=== PATIENT | female | born 1935 | race Caucasian/White ===

== ENCOUNTER 2019-01-07 11:01 | Inpatient (IN) | payer OTHER ==
[2019-01-07] MEDS ORDERED: NA CHLORIDE 0.9% 1,000 ML ONE (12:07)
[2019-01-07 12:19] LABS: Basophils % 0.7 % (0-1.3); Hematocrit 38.6 % (36.0-45.0); Lymphocytes % 14.6 % (15.3-44.8); MPV 10.1 fL (7.6-11.3); RBC Red Blood Cell Count 4.54 M/uL (3.86-4.86)
[2019-01-07 12:21] LABS: Protime INR 1.04
--- NOTE | 2019-01-07 12:34 | EKG ---
Test Date: 2019-01-07 Test Time: 11:16:30 Group Cio: DEBBI MEASUREMENT RESULTS: Intervals: Rate: 84 WY: 156 QRSD: 86 QT: 370 QTc: 437 Curlew: P: 70 WY: 156 QRS: 40 T: 35 INTERPRETIVE STATEMENTS: Normal sinus rhythm Low voltage QRS Possible Inferior infarct, age undetermined Cannot rule out Anterior infarct, age undetermined Abnormal ECG No previous ECG available for comparison Electronically Signed On 01-07-19 12:33:37 CDT by Sony Crump
[2019-01-07 12:36] LABS: ALT/SGPT 14 U/L (12-78); AST/SGOT 21 U/L (15-37); Albumin 3.3 g/dL (3.4-5.0); Alkaline Phosphatase 80 U/L (45-117); BUN Blood Urea Nitrogen 22 mg/dL (7-18); Bicarbonate 29 mmol/L (21-32); Bilirubin Direct 0.2 mg/dL (0-0.2); Bilirubin Total 0.4 mg/dL (0.2-1.0); Glucose Level 90 mg/dL (74-106); Lipase 63 U/L (73-393); NT PRO-BNP 165 pg/mL (<450); Potassium 3.7 mmol/L (3.5-5.1); Protein, Total 7.9 g/dL (6.4-8.2); Sodium Level 141 mmol/L (136-145); Troponin (Emerg Dept Use Only) < 0.02 ng/mL (0.0-0.045)
--- NOTE | 2019-01-07 12:39 | RAD REPORT ---
EXAM DESCRIPTION: RAD - Chest Single View - 01/07/2019 12:07 pm CLINICAL HISTORY: Cough, dyspnea COMPARISON: None. TECHNIQUE: AP portable chest image was obtained 1152 hour . FINDINGS: Lung volumes are low accentuating interstitial pattern. Interstitial pattern further accen tuated by shallow inspiration, portable technique and large body habitus. No focal mass or consolidat ion. Mild interstitial edema or infiltrate could be present and indistinguishable from chronic underl lenin interstitial lung disease. Heart and vasculature are normal. No measurable pleural effusion and no pneumothorax. No acute bony abnormality seen. No acute aortic findings suspected. IMPRESSION: Baseline chest film shows prominent interstitial pattern in the setting of large body martinez bitus, portable technique and shallow inspiration. Early interstitial edema or infiltrate cannot be distinguished from fibrosis. No focal mass or consolidation.
[2019-01-07 14:20] LABS: Arterial Blood Carboxyhemoglob 0.7 % (0-1.5); Blood Gas Oxyhemoglobin 96.3 % (94-97); Blood O2 Saturation 97.8 % (92-98.5)
--- NOTE | 2019-01-07 14:46 | EDPHYS ---
Physician Documentation [facility] Name: Lucero Valerio Age: 83 yrs Sex: Female : 1935 Arrival Date: 01/07/2019 Time: 11:05 Bed 15 Private MD: Daron Seals R ED Physician John Galeano HPI: 01/07 14:01 This 83 yrs old Female presents to ER via Wheelchair with complaints of helen Shortness Of Breath. 14:01 The patient has shortness of breath at rest, with light activity. Onset: The helen symptoms/episode began/occurred 5 day(s) ago. Duration: The symptoms are continuous, and are steadily getting worse. The patient's shortness of breath has no apparent modifying factors. Associated signs and symptoms: The patient has no apparent associated signs or symptoms. Severity of symptoms: At their worst the symptoms were mild in the emergency department the symptoms are unchanged. The patient has not experienced similar symptoms in the past. Historical: - Allergies: 11:17 Sulfa (Sulfonamide Antibiotics); ss - Immunization history:: Pneumococcal vaccine is not up to date, Flu vaccine is not up to date. - Social history:: Smoking status: Patient/guardian denies using tobacco, the patient reports quitting approximately 17 years ago. - Ebola Screening: : Patient denies exposure to infectious person Patient denies travel to an Ebola-affected area in the 21 days before illness onset. - Family history:: not pertinent. ROS: 14:01 Constitutional: Negative for fever, chills, and weight loss, Eyes: Negative for injury, helen pain, redness, and discharge, ENT: Negative for injury, pain, and discharge, Neck: Negative for injury, pain, and swelling, Cardiovascular: Negative for chest pain, palpitations, and edema, Abdomen/GI: Negative for abdominal pain, nausea, vomiting, diarrhea, and constipation, Back: Negative for injury and pain, : Negative for injury, bleeding, discharge, and swelling, Skin: Negative for injury, rash, and discoloration, Neuro: Negative for headache, weakness, numbness, tingling, and seizure. 14:01 Respiratory: Positive for cough, shortness of breath. 14:01 MS/extremity: Positive for decreased range of motion, pain, swelling. Exam: 14:03 Constitutional: This is a well developed, well nourished patient who is awake, alert, ehlen and in no acute distress. Head/Face: Normocephalic, atraumatic. Eyes: Pupils equal round and reactive to light, extra-ocular motions intact. Lids and lashes normal. Conjunctiva and sclera are non-icteric and not injected. Cornea within normal limits. Periorbital areas with no swelling, redness, or edema. ENT: Nares patent. No nasal discharge, no septal abnormalities noted. Tympanic membranes are normal and external auditory canals are clear. Oropharynx with no redness, swelling, or masses, exudates, or evidence of obstruction, uvula midline. Mucous membranes moist. Neck: Trachea midline, no thyromegaly or masses palpated, and no cervical lymphadenopathy. Supple, full range of motion without nuchal rigidity, or vertebral point tenderness. No Meningismus. Chest/axilla: Normal chest wall appearance and motion. Nontender with no deformity. No lesions are appreciated. Cardiovascular: Regular rate and rhythm with a normal S1 and S2. No gallops, murmurs, or rubs. Normal PMI, no JVD. No pulse deficits. Abdomen/GI: Soft, non-tender, with normal bowel sounds. No distension or tympany. No guarding or rebound. No evidence of tenderness throughout. Back: No spinal tenderness. No costovertebral tenderness. Full range of motion. Female : Normal external genitalia. Skin: Warm, dry with normal turgor. Normal color with no rashes, no lesions, and no evidence of cellulitis. Neuro: Awake and alert, GCS 15, oriented to person, place, time, and situation. Cranial nerves II-XII grossly intact. Motor strength 5/5 in all extremities. Sensory grossly intact. Cerebellar exam normal. Normal gait. Psych: Awake, alert, with orientation to person, place and time. Behavior, mood, and affect are within normal limits. 14:03 Respiratory: mild respiratory distress is noted, Respirations: labored breathing, that is mild, Breath sounds: decreased breath sounds, Respiratory rate: 20 Vital Signs: 11:13 BP 183 / 85; Pulse 94; Resp 18; Temp 98.4(TE); Pulse Ox 99% on 2 lpm NC; Weight 99.79 ss kg; Height 4 ft. 11 in. (149.86 cm); Pain 0/10; 13:02 BP 146 / 99; Pulse 80; Resp 20; Pulse Ox 99% on 2 lpm NC; ph 14:30 BP 151 / 88; Pulse 76; Resp 18; Pulse Ox 99% on 2 lpm NC; ph 16:10 BP 155 / 77; Pulse 75; Resp 22; Pulse Ox 98% on 2 lpm NC; ph 17:00 BP 148 / 78; Pulse 77; Resp 18; Temp 97.8; Pulse Ox 98% on 2 lpm NC; ph 11:13 Body Mass Index 44.43 (99.79 kg, 149.86 cm) ss MDM: 11:26 Patient medically screened. [facility] 14:04 Data reviewed: vital signs, nurses notes, lab test result(s), EKG, radiologic studies, [facility] CT scan, plain films. 01/07 11:27 Order name: Basic Metabolic Panel; Complete Time: 13:22 [facility] 01/07 11:27 Order name: CBC with Diff; Complete Time: 13:22 [facility] 01/07 11:27 Order name: LFT's; Complete Time: 13:22 [facility] 01/07 11:27 Order name: Magnesium; Complete Time: 13:22 [facility] 01/07 11:27 Order name: NT PRO-BNP; Complete Time: 13:22 [facility] 01/07 11:27 Order name: PT-INR; Complete Time: 13:22 [facility] 01/07 11:27 Order name: Troponin (emerg Dept Use Only); Complete Time: 13:22 [facility] 01/07 11:27 Order name: Lipase; Complete Time: 13:22 [facility] 01/07 11:27 Order name: Urine Culture [facility] 01/07 11:27 Order name: Blood Culture Adult (2) [facility] 01/07 14:02 Order name: ABG; Complete Time: 14:44 [facility] 01/07 14:28 Order name: D-Dimer; Complete Time: 16:28 [facility] 01/07 14:55 Order name: Urine Dipstick--Ancillary (enter results) 01/07 15:49 Order name: Urine Dipstick-Ancillary; Complete Time: 16:28 [facility] 01/07 11:27 Order name: XRAY Chest (1 view); Complete Time: 13:22 [facility] 01/07 11:27 Order name: EKG; Complete Time: 11:29 [facility] 01/07 11:27 Order name: Cardiac monitoring; Complete Time: 16:10 [facility] 01/07 11:27 Order name: EKG - Nurse/Tech; Complete Time: 11:37 [facility] 01/07 11:27 Order name: IV Saline Lock; Complete Time: 11:37 [facility] 01/07 11:27 Order name: Labs collected and sent; Complete Time: 11:37 [facility] 01/07 11:27 Order name: O2 Per Protocol; Complete Time: 11:37 [facility] 01/07 11:27 Order name: O2 Sat Monitoring; Complete Time: 11:37 [facility] 01/07 14:02 Order name: CT Head Brain wo Cont [facility] 01/07 14:40 Order name: US Extremity Venous W Compression Ronald [facility] 01/07 15:32 Order name: CT; Complete Time: 16:28 [facility] 01/07 15:41 Order name: US; Complete Time: 16:28 [facility] 01/07 16:05 Order name: CT Chest For PE Angio 01/07 11:27 Order name: Urine Dipstick-Ancillary (obtain specimen); Complete Time: 17:31 [facility] 01/07 14:02 Order name: Redd; Complete Time: 15:26 [facility] Administered Medications: 12:11 Drug: NS 0.9% 1000 ml Route: IV; Rate: 125 ml/hr; Site: right forearm; la1 16:22 Follow up: Response: No adverse reaction; IV Status: Infusion continued upon admission ph 15:45 Drug: Xopenex 1.25 mg Route: Inhalation; ph 16:21 Follow up: Response: No adverse reaction ph 15:47 Drug: AtroVENT Aerosol 0.5 mg Route: Inhalation; ph 16:21 Follow up: Response: No adverse reaction ph Disposition: 01/07/19 14:45 Hospitalization ordered by Daron Seals for Inpatient Admission. Preliminary diagnosis are Dyspnea, Weakness, Repeated falls, Obesity, unspecified. - Bed requested for Telemetry/MedSurg (Inpatient). - Status is Inpatient Admission. ph - Condition is Fair. - Problem is new. - Symptoms have improved. UTI on Admission? No Signatures: Dispatcher [employer] EDMS Jami Roque Corey, MD MD cha Smirch, Shelby, RN RN ss Nicolas Barragan RN RN la1 Rachna Mehta RN RN ph Corrections: (The following items were deleted from the chart) 15:38 14:45 Hospitalization Ordered by Daron Seals MD for Inpatient Admission. Preliminary bd diagnosis is Dyspnea; Weakness; Repeated falls; Obesity, unspecified. Bed requested for Telemetry/MedSurg (Inpatient). Status is Inpatient Admission. Condition is Fair. Problem is new. Symptoms have improved. UTI on Admission? No. helen 17:34 15:38 01/07/2019 14:45 Hospitalization Ordered by Daron Seals MD for Inpatient ph Admission. Preliminary diagnosis is Dyspnea; Weakness; Repeated falls; Obesity, unspecified. Bed requested for Telemetry/MedSurg (Inpatient). Status is Inpatient Admission. Condition is Fair. Problem is new. Symptoms have improved. UTI on Admission? No. bd
--- NOTE | 2019-01-07 14:46 | ER ---
Nurse's Notes [facility] Name: Lucero Valerio Age: 83 yrs Sex: Female : 1935 Arrival Date: 01/07/2019 Time: 11:05 Bed 15 Private MD: Daron Seals R Diagnosis: Dyspnea;Weakness;Repeated falls;Obesity, unspecified Presentation: 01/07 11:14 Presenting complaint: Daughter reports that patient moved in with her 1.5 months ago ss because she had been falling more at home and unable to live by herself any longer. Over the past 2 months, daughter reports that her strength has declined significantly. Pt states, "Everything is just going down hill.". Transition of care: patient was not received from another setting of care. Onset of symptoms was November 2018. Risk Assessment: Do you want to hurt yourself or someone else? Patient reports no desire to harm self or others. Initial Sepsis Screen: Does the patient meet any 2 criteria? No. Patient's initial sepsis screen is negative. Does the patient have a suspected source of infection? No. Patient's initial sepsis screen is negative. Care prior to arrival: None. 11:14 Method Of Arrival: Wheelchair ss 11:14 Acuity: MAHAD 3 ss Historical: - Allergies: 11:17 Sulfa (Sulfonamide Antibiotics); ss - Immunization history:: Pneumococcal vaccine is not up to date, Flu vaccine is not up to date. - Social history:: Smoking status: Patient/guardian denies using tobacco, the patient reports quitting approximately 17 years ago. - Ebola Screening: : Patient denies exposure to infectious person Patient denies travel to an Ebola-affected area in the 21 days before illness onset. - Family history:: not pertinent. Screenin:04 Abuse screen: Denies threats or abuse. Nutritional screening: No deficits noted. la1 Tuberculosis screening: No symptoms or risk factors identified. Fall Risk None identified. Assessment: 12:03 General: Appears in no apparent distress. Behavior is calm, cooperative. Pain: Denies la1 pain. Neuro: Level of Consciousness is awake, alert, obeys commands, Oriented to person, place, time, situation, Reports weakness in left arm and left leg since a few months. Cardiovascular: Heart tones S1 S2 present Capillary refill < 3 seconds Patient's skin is warm and dry. Chest pain is denied. Respiratory: Airway is patent Trachea midline Respiratory effort is even, labored, Respiratory pattern is regular, tachypnea Breath sounds are diminished bilaterally. Pt on home 02. GI: Abdomen is obese. : No signs and/or symptoms were reported regarding the genitourinary system. 13:02 Reassessment: Patient appears in no apparent distress at this time. Patient and/or ph family updated on plan of care and expected duration. Pain level reassessed. Patient is alert, oriented x 3, equal unlabored respirations, skin warm/dry/pink. Pt resting quietly w/ stable VS, family at bedside, awaiting urine sample. 14:20 Reassessment: Patient appears in no apparent distress at this time. Patient and/or ph family updated on plan of care and expected duration. Pain level reassessed. Patient is alert, oriented x 3, equal unlabored respirations, skin warm/dry/pink. ERP ordered Redd catheter per pt request although pt does not meet Redd criteria. 15:00 Reassessment: Patient appears in no apparent distress at this time. Patient and/or ph family updated on plan of care and expected duration. Pain level reassessed. Patient is alert, oriented x 3, equal unlabored respirations, skin warm/dry/pink. 16:05 Reassessment: Admission to room 212 delayed due to add of of CT chest r/o PE per Dr. brandi Galeano. DDIMER [id number] Dr. Spear notified at 1602. 17:20 Reassessment: Patient appears in no apparent distress at this time. Patient and/or ph family updated on plan of care and expected duration. Pain level reassessed. Patient is alert, oriented x 3, equal unlabored respirations, skin warm/dry/pink. Report called to Lucero FINLEY, pt taken to second floor via stretcher by oxygen equipment technician. Vital Signs: 11:13 BP 183 / 85; Pulse 94; Resp 18; Temp 98.4(TE); Pulse Ox 99% on 2 lpm NC; Weight 99.79 ss kg; Height 4 ft. 11 in. (149.86 cm); Pain 0/10; 13:02 BP 146 / 99; Pulse 80; Resp 20; Pulse Ox 99% on 2 lpm NC; ph 14:30 BP 151 / 88; Pulse 76; Resp 18; Pulse Ox 99% on 2 lpm NC; ph 16:10 BP 155 / 77; Pulse 75; Resp 22; Pulse Ox 98% on 2 lpm NC; ph 17:00 BP 148 / 78; Pulse 77; Resp 18; Temp 97.8; Pulse Ox 98% on 2 lpm NC; ph 11:13 Body Mass Index 44.43 (99.79 kg, 149.86 cm) ED Course: 11:05 Patient arrived in ED. mr 11:05 Daron Seals MD is Private Physician. mr 11:13 Arm band placed on right wrist. ss 11:16 Triage completed. ss 11:24 EKG done, by wildlife biology technician. reviewed by John Galeano MD. sm3 11:26 Nicolas Barragan, RN is Primary Nurse. la1 11:26 John Galeano MD is Attending Physician. helen 11:36 Inserted saline lock: 22 gauge in right forearm, using aseptic technique. Blood la1 collected. 12:04 Patient has correct armband on for positive identification. Side rails up X 1. la1 12:21 XRAY Chest (1 view) In Process Unspecified. EDHI 14:23 No provider procedures requiring assistance completed. Patient admitted, IV remains in ph place. 14:44 Daron Seals MD is Hospitalizing Provider. [facility] 14:48 Redd cath inserted, using sterile technique, 16 Fr., by ED staff, balloon inflated, to ph gravity drainage, urine specimen collected. other 600 mL output. Administered Medications: 12:11 Drug: NS 0.9% 1000 ml Route: IV; Rate: 125 ml/hr; Site: right forearm; la1 16:22 Follow up: Response: No adverse reaction; IV Status: Infusion continued upon admission ph 15:45 Drug: Xopenex 1.25 mg Route: Inhalation; ph 16:21 Follow up: Response: No adverse reaction ph 15:47 Drug: AtroVENT Aerosol 0.5 mg Route: Inhalation; ph 16:21 Follow up: Response: No adverse reaction ph Outcome: 14:45 Decision to Hospitalize by Provider. helen 17:33 Admitted to Tele accompanied by tech, via stretcher, room 212, with oxygen, with chart. ph 17:33 Condition: stable 17:34 Patient left the ED. ph Signatures: Dispatcher [employer] EDMS John Galeano MD MD cha Rivera, Mary mr Smirch, Shelby, RN RN ss Nicolas Barragan, RN RN la1 Rachna Mehta, RN RN Osman, Rosaura march
--- NOTE | 2019-01-07 15:30 | RAD REPORT ---
EXAM DESCRIPTION: CT - Head Brain Wo Cont - 01/07/2019 2:58 pm CLINICAL HISTORY: Dizziness, headache, transient alteration of awareness COMPARISON: None. TECHNIQUE: Axial 5 mm thick images of the head were obtained without IV contrast. All CT scans are performed using dose optimization technique as appropriate and may include automated exposure control or mA/KV adjustment according to patient size. FINDINGS: No intracranial hemorrhage, mass, edema or shift of mid-line structures. No acute infarcti on changes seen. No abnormal extra-axial fluid collections. Atrophy changes are mild. Ventricles are in proportion to the amount of volume loss. Patient has advanced chronic ischemic change throughout t he cerebral white matter extending into the basal ganglia and probably into the brainstem. Mastoid air cells and visualized portions of the paranasal sinuses are clear. No acute bony findings. IMPRESSION: Advanced chronic ischemic change and mild atrophy change present. No acute intracranial finding.
[2019-01-07] MEDS ORDERED: IPRATROPIUM BROM 0.5MG/2.5ML ONE (15:31)
[2019-01-07] MEDS ORDERED: LEVALBUTEROL 1.25 MG/3 ML NEB ONE (15:31)
--- NOTE | 2019-01-07 15:32 | RAD REPORT ---
EXAM DESCRIPTION: US - Extrem Venous W Compress Ronald - 01/07/2019 3:25 pm CLINICAL HISTORY: Leg pain and swelling COMPARISON: None. TECHNIQUE: Real-time sonographic evaluation of the bilateral lower extremity common femoral, superfi cial femoral, popliteal and posterior tibial veins was performed. FINDINGS: Normal compressibility, flow augmentation, phasic flow and spontaneous flow are identified in the left and right lower extremity common femoral, superficial femoral, popliteal and posterior t ibial veins. No intraluminal filling defects seen. IMPRESSION: No DVT in either lower extremity.
[2019-01-07 15:48] LABS: Urine Blood NEGATIVE (NEG); Urine Glucose NEGATIVE (NEG); Urine Protein NEGATIVE (NEG); Urine Specific Gravity 1.015 (1.005-1.030)
[2019-01-07] MEDS ORDERED: ONDANSETRON 4 MG/2 ML VIAL IV PRN (17:45)
[2019-01-07] MEDS: NA CHLORIDE 0.9% 1,000 ML IV SCH (18:39)
[2019-01-07] MEDS: METHYLPREDNISOLONE 40 MG INJ IV SCH (18:40)
[2019-01-07] MEDS: FAMOTIDINE 20 MG/2 ML VIAL IV SCH (20:50)
[2019-01-07] MEDS: ENOXAPARIN 40 MG/0.4 ML SQ SCH (20:51)
[2019-01-07] MEDS ORDERED: PNEUMOCOCCAL VACCINE 0.5 ML IMVAC ONE (21:00)
[2019-01-07] MEDS ORDERED: INFLUENZA VACCINE (for 3y+) 0.5 ML DOSE IMVAC ONE (21:00)
[2019-01-07] MEDS: ACETAMINOPHEN 500 MG TAB PO PRN (23:22)
[2019-01-08] MEDS: METHYLPREDNISOLONE 40 MG INJ IV SCH ×3 (00:22→16:53)
[2019-01-08] MEDS: NA CHLORIDE 0.9% 1,000 ML IV SCH ×3 (04:12→23:28)
[2019-01-08 05:24] LABS: Absolute Lymphocytes (CBC) 0.6 K/uL (0.7-4.9); Basophils % 0.4 % (0-1.3); Lymphocytes % 8.7 % (15.3-44.8); MPV 9.9 fL (7.6-11.3); RBC Red Blood Cell Count 4.29 M/uL (3.86-4.86)
[2019-01-08] MEDS: ACETAMINOPHEN 500 MG TAB PO PRN ×2 (06:00→17:00)
[2019-01-08] MEDS: IPRATROPIUM BROM 0.5MG/2.5ML NEB PRN ×3 (08:15→20:00)
[2019-01-08] MEDS: ALBUTEROL 2.5 MG/3 ML NEB SOL NEB PRN ×2 (08:15→13:48)
[2019-01-08 08:35] LABS: Blood Morphology Comment NOT SEEN (NOT SEEN); Platelet Estimate ADEQ
[2019-01-08] MEDS: ASPIRIN EC 81 MG TAB PO SCH (10:23)
[2019-01-08] MEDS: FAMOTIDINE 20 MG/2 ML VIAL IV SCH ×2 (10:23→20:16)
[2019-01-08] MEDS: LOSARTAN POTASSIUM 50 MG TABLET PO SCH (10:23)
[2019-01-08] MEDS: ENOXAPARIN 40 MG/0.4 ML SQ SCH (16:53)
[2019-01-09] MEDS: IPRATROPIUM BROM 0.5MG/2.5ML NEB PRN ×3 (00:49→13:35)
[2019-01-09] MEDS: ALBUTEROL 2.5 MG/3 ML NEB SOL NEB PRN ×4 (00:49→20:00)
--- NOTE | 2019-01-09 04:42 | EKG ---
Test Date: 2019-01-08 Test Time: 08:42:41 [employer] Pack[employer] Machine Operator: HAO MEASUREMENT RESULTS: Intervals: Rate: 88 MN: 168 QRSD: 86 QT: 362 QTc: 438 Arverne: P: 69 MN: 168 QRS: 41 T: 28 INTERPRETIVE STATEMENTS: Normal sinus rhythm Low voltage QRS Cannot rule out Anterior infarct, age undetermined Abnormal ECG Compared to ECG 01/07/2019 11:16:30 No significant changes Electronically Signed On 01-09-19 04:41:28 CDT by Sony Crump
[2019-01-09] MEDS: LOSARTAN POTASSIUM 50 MG TABLET PO SCH (08:10)
[2019-01-09] MEDS: FAMOTIDINE 20 MG/2 ML VIAL IV SCH ×2 (08:10→21:35)
[2019-01-09] MEDS: ASPIRIN EC 81 MG TAB PO SCH (08:10)
[2019-01-09] MEDS: METHYLPREDNISOLONE 40 MG INJ IV SCH ×3 (08:11→18:01)
[2019-01-09] MEDS: NA CHLORIDE 0.9% 1,000 ML IV SCH ×3 (10:30→20:58)
--- NOTE | 2019-01-09 12:23 | RAD REPORT ---
EXAM DESCRIPTION: CT - Chest For Pe Angio - 01/08/2019 7:01 pm CLINICAL HISTORY: elevated DDIMER, shortness of breath COMPARISON: Chest Single View dated 01/07/2019 TECHNIQUE: Dynamically enhanced 3 mm thick images of the chest were obtained during administration o f approximately 150mL Isovue 370 IV contrast. Coronal and oblique MIP reconstruction images were gene rated and reviewed. Exam utilizes a protocol to evaluate the pulmonary arterial tree. All CT scans are performed using dose optimization technique as appropriate and may include automated exposure control or mA/KV adjustment according to patient size. FINDINGS: No pulmonary emboli are identified. The aorta as imaged shows no acute or suspicious finding. Aorta is tortuous but not dilated. Minimal aortic calcifications noted. No pericardial thickening or effusion. No focal consolidation or suspicious mass lesion. Respiratory motion limits detail. There is minimal atelectasis in each posterior gutter. Posterior lung base prominent interstitial markings could indic ate chronic disease or minimal interstitial edema or infiltrate. No pleural effusion or pleural thick ening. No mediastinal or hilar suspicious masses. No chest wall masses or abnormal axillary lymphadenopathy. IMPRESSION: No pulmonary emboli identified. No focal mass or consolidation. Minimal prominence of the interstitial markings in each lung base cou ld be chronic disease, minimal interstitial edema or minimal interstitial infiltrate. Note: Due to prolonged technical problems with the PACs - dictation systems, a final written report w as delayed. Verbal report telephoned to the ordering clinician at the time of the study.
[2019-01-09] MEDS: HYDRALAZINE HCL 20 MG/ML VIAL IV PRN (14:02)
[2019-01-09] MEDS: ACETAMINOPHEN 500 MG TAB PO PRN (14:06)
--- NOTE | 2019-01-09 14:10 | RAD REPORT ---
EXAM DESCRIPTION: Brittat Single View01/08/2019 7:05 pm CLINICAL HISTORY: Chest pain COMPARISON: 01/07/2019 FINDINGS: The lungs appear clear of acute infiltrate. The heart is mildly enlarged. Eventration right hemidiaphragm
[2019-01-09] MEDS: ENOXAPARIN 40 MG/0.4 ML SQ SCH (18:01)
[2019-01-09 18:38] VITALS: BMI 44.2
[2019-01-09] MEDS: DIPHENHYDRAMINE 25 MG TAB/CAP PO PRN (22:52)
[2019-01-10] MEDS: METHYLPREDNISOLONE 40 MG INJ IV SCH (00:34)
--- NOTE | 2019-01-10 00:47 | HP ---
Date of Admission: 01/07/2019 Chief Complaint: Multiple weakness, falls, dyspnea. History Of Present Illness: An 83-year-old female who is known to have COPD, [facility] with multiple complaints including weakness, repeated falls, and shortness of breath. Pat deanfercho had workup done. There were increased pulmonary markings on the x-ray. She did not have any ev idence of fractures or other acute illness. Patient is admitted. Patient denied any history of ches t pain. No history of fever, chills, rigors. Past Medical History: Positive for COPD, hypertension, osteoarthritis, gastroesophageal reflux disea se. Allergies: SULFONAMIDES. Family History: Noncontributory. Personal History: Currently, nonsmoker. Home Medicines: Tylenol, aspirin, Symbicort, Lasix, Motrin, omeprazole, losartan. Review of Systems: No chest pain. Physical Examination: General: Revealed 83-year-old female, alert for her age. HEENT: Negative. Neck: Supple. JVD negative. Chest: Scattered wheezes bilaterally. Heart: Regular. Abdomen: Pendulous, nontender. Extremities: No edema. Laboratory Data: White count normal. Chem profile; BUN 22, otherwise normal. Troponin negative. B BUYER PLANNER 343. Chest x-ray done in the emergency room at the time of admission showed increased interstitia l markings. Assessment: 1.Chronic obstructive pulmonary disease exacerbation. 2.Chronic obstructive pulmonary disease. 3.Hypertension. 4.Osteoarthritis. 5.History of repeated falls and poor mobility. Plan: Patient is started on IV steroids and breathing treatments. Social Service and rehab consults are done to see what would be good for her in the senior living to prevent falls and have fractures. MARK/ATILIO Voice ID: [id number]
[2019-01-10] MEDS: NA CHLORIDE 0.9% 1,000 ML IV SCH ×2 (04:17→17:08)
[2019-01-10] MEDS: HYDRALAZINE HCL 20 MG/ML VIAL IV PRN (06:03)
[2019-01-10] MEDS: IPRATROPIUM BROM 0.5MG/2.5ML NEB PRN ×3 (08:27→22:05)
[2019-01-10] MEDS: ALBUTEROL 2.5 MG/3 ML NEB SOL NEB PRN ×3 (08:27→22:05)
[2019-01-10] MEDS: LOSARTAN POTASSIUM 50 MG TABLET PO SCH (08:54)
[2019-01-10] MEDS: predniSONE 10 MG TAB PO SCH ×2 (08:54→20:13)
[2019-01-10] MEDS: ASPIRIN EC 81 MG TAB PO SCH (08:54)
[2019-01-10] MEDS: ACETAMINOPHEN 500 MG TAB PO PRN ×2 (08:54→17:06)
[2019-01-10] MEDS: FAMOTIDINE 20 MG/2 ML VIAL IV SCH (08:55)
--- NOTE | 2019-01-10 12:11 | PN ---
Patient is doing better. Her wheezing is better. However, her blood pressure is going up, probably it is from steroids. I will discontinue IV steroids and place her on oral prednisone. She also will receive Lovenox for DVT prevention. MARK/ATILIO Voice ID: [id number] Report ID: [id number]
[2019-01-10] MEDS ORDERED: ENOXAPARIN 30 MG/0.3 ML SQ SCH (17:00)
[2019-01-10] MEDS: FAMOTIDINE 20 MG TAB PO SCH (20:13)
[2019-01-11] MEDS: DIPHENHYDRAMINE 25 MG TAB/CAP PO PRN (00:39)
[2019-01-11] MEDS: HYDRALAZINE HCL 20 MG/ML VIAL IV PRN ×2 (00:42→06:28)
[2019-01-11] MEDS: NA CHLORIDE 0.9% 1,000 ML IV SCH (02:33)
[2019-01-11] MEDS: ALBUTEROL 2.5 MG/3 ML NEB SOL NEB PRN ×2 (07:26→14:10)
[2019-01-11] MEDS: IPRATROPIUM BROM 0.5MG/2.5ML NEB PRN ×2 (07:26→14:10)
[2019-01-11] MEDS: LOSARTAN POTASSIUM 50 MG TABLET PO SCH (08:49)
[2019-01-11] MEDS: FAMOTIDINE 20 MG TAB PO SCH (08:49)
[2019-01-11] MEDS: predniSONE 10 MG TAB PO SCH (08:49)
[2019-01-11] MEDS: ASPIRIN EC 81 MG TAB PO SCH (08:50)
[2019-01-11] MEDS: ACETAMINOPHEN 500 MG TAB PO PRN (08:57)
[2019-01-11] MEDS ORDERED: MELATONIN 5 MG TABLET PO PRN (10:48)
[2019-01-11 12:47] VITALS: TEMP 98.9
[2019-01-11 16:14] VITALS: O2SAT 98
[2019-01-11 16:28] VITALS: BP 144/67
== END 2019-01-11 18:28 | DRG 192 ==
LOC: ER 11:01 → ERHOLD 14:48 → 2ND 17:18
PROVIDERS: ADMIT Internal Medicine; ATTEND Internal Medicine
DX: J44.1 Chronic obstructive pulmonary disease with (acute) exacerbation (principal); I10 Essential (primary) hypertension; M19.90 Unspecified osteoarthritis, unspecified site; K21.9 Gastro-esophageal reflux disease without esophagitis; Z88.2 Allergy status to sulfonamides; Z91.81 History of falling
CPT/HCPCS: 36415; 51702; 70450; 71045; 71275; 80048; 80076; 81003; 82805; 83690; 83735; 83880; 84484; 85025; 85379; 85610; 87040; 87086; 87088; 93005; 93970; 94640; 94760; 96360; 96361; 97110; 97161; 97530; 99285; J0360; J1650; J2920; J7030; J7512; Q9967

== ENCOUNTER 2019-02-09 02:00 | Inpatient (IN) | payer OTHER ==
[2019-02-09 02:35] LABS: Absolute Lymphocytes (CBC) 1.6 K/uL (0.7-4.9); Basophils % 0.7 % (0-1.3); Hematocrit 34.3 % (36.0-45.0); RBC Red Blood Cell Count 4.09 M/uL (3.86-4.86)
[2019-02-09 02:38] LABS: Protime INR 1.05
[2019-02-09] MEDS ORDERED: AZITHROMYCIN 500 MG INJ IVPB ONE (02:45)
[2019-02-09] MEDS ORDERED: NA CHLORIDE 0.9% 250 ML ONE (02:45)
[2019-02-09] MEDS ORDERED: CEFTRIAXONE/SWI 1gm 1 GM/10 ML SYR ONE (02:45)
[2019-02-09] MEDS ORDERED: FUROSEMIDE 20 MG/ 2ML VIAL ONE (02:45)
[2019-02-09 02:50] LABS: ALT/SGPT 20 U/L (12-78); AST/SGOT 21 U/L (15-37); Albumin 2.7 g/dL (3.4-5.0); Alkaline Phosphatase 70 U/L (45-117); BUN Blood Urea Nitrogen 20 mg/dL (7-18); Bicarbonate 30 mmol/L (21-32); Bilirubin Direct 0.1 mg/dL (0-0.2); Bilirubin Total 0.4 mg/dL (0.2-1.0); CKMB Creatine Kinase MB 1.6 ng/mL (0.3-3.6); Creatine Phosphokinase 81 U/L (26-192); Glucose Level 103 mg/dL (74-106); Lipase 54 U/L (73-393); Magnesium 1.9 mg/dL (1.8-2.4); NT PRO-BNP 200 pg/mL (<450); Potassium 3.6 mmol/L (3.5-5.1); Protein, Total 6.8 g/dL (6.4-8.2); Sodium Level 142 mmol/L (136-145); Troponin (Emerg Dept Use Only) < 0.02 ng/mL (0.0-0.045)
[2019-02-09] MEDS ORDERED: ALBUTEROL 2.5 MG/3 ML NEB SOL ONE (02:53)
[2019-02-09 03:05] LABS: Arterial Blood Carboxyhemoglob 0.8 % (0-1.5); Blood Gas Oxyhemoglobin 96.7 % (94-97); Blood O2 Saturation 98.2 % (92-98.5)
[2019-02-09 03:46] LABS: Urine Blood 1+ (NEG); Urine Glucose NEGATIVE (NEG); Urine Protein 1+ (NEG); Urine pH 6.5 (5.0-7.0)
--- NOTE | 2019-02-09 04:16 | EDPHYS ---
Physician Documentation [facility] Name: Lucero Valerio Age: 83 yrs Sex: Female : 1935 Arrival Date: 02/09/2019 Time: 02:05 Bed 6 Private MD: ED Physician Gab Sparks HPI: 02/09 02:45 This 83 yrs old Female presents to ER via EMS with complaints of Breathing tw4 Difficulty. 02:45 The patient has shortness of breath at rest. Onset: The symptoms/episode began/occurred tw4 today. Duration: The symptoms are continuous, and are steadily getting worse. The patient's shortness of breath has no apparent modifying factors. Associated signs and symptoms: The patient has no apparent associated signs or symptoms. Severity of symptoms: At their worst the symptoms were moderate. The patient has not experienced similar symptoms in the past. Historical: - Allergies: 02:15 Sulfa (Sulfonamide Antibiotics); lp1 - Home Meds: 02:15 melatonin 5 mg Oral tab 2 tab nightly [Active]; GlycoLax 17 gram/dose oral powd once lp1 daily [Active]; Enulose 10 gram/15 mL oral soln 30 mL daily [Active]; omeprazole 20 mg Oral TbEC nightly [Active]; 02:18 ipratropium-albuterol 0.5 mg-3 mg(2.5 mg base)/3 mL Inhl nebu 3 mL every 6 hours lp1 [Active]; Symbicort 160-4.5 mcg/actuation inhalation HFAA 2 puffs 2 times per day [Active]; losartan 50 mg oral tab 1 tab once daily [Active]; aspirin 81 mg Oral TbEC 1 tab once daily [Active]; - PMHx: 02:18 COPD; Polyosteoarthritis; Dysphagia; GERD; Sleep Apnea; Hypertension; lp1 - Immunization history:: Adult Immunizations up to date. - Social history:: Smoking status: Patient/guardian denies using tobacco, the patient reports quitting approximately 15 years ago. - Ebola Screening: : No symptoms or risks identified at this time. ROS: 02:45 Constitutional: Negative for fever, chills, and weight loss, Eyes: Negative for injury, tw4 pain, redness, and discharge, Cardiovascular: Negative for chest pain, palpitations, and edema, Abdomen/GI: Negative for abdominal pain, nausea, vomiting, diarrhea, and constipation, Back: Negative for injury and pain, MS/Extremity: Negative for injury and deformity, Skin: Negative for injury, rash, and discoloration, Neuro: Negative for headache, weakness, numbness, tingling, and seizure. 02:45 Respiratory: Positive for cough, shortness of breath, Negative for Exam: 02:45 Constitutional: This is a well developed, well nourished patient who is awake, alert, tw4 and in no acute distress. Head/Face: Normocephalic, atraumatic. Cardiovascular: Regular rate and rhythm with a normal S1 and S2. No gallops, murmurs, or rubs. Normal PMI, no JVD. No pulse deficits. 02:45 Abdomen/GI: Soft, non-tender, with normal bowel sounds. No distension or tympany. No guarding or rebound. No evidence of tenderness throughout. Back: No spinal tenderness. No costovertebral tenderness. Full range of motion. MS/ Extremity: Pulses equal, no cyanosis. Neurovascular intact. Full, normal range of motion. Neuro: Awake and alert, GCS 15, oriented to person, place, time, and situation. Cranial nerves II-XII grossly intact. Motor strength 5/5 in all extremities. Sensory grossly intact. Cerebellar exam normal. Normal gait. 02:45 Respiratory: moderate respiratory distress is noted, Respirations: labored breathing, that is moderate, accessory muscle usage, that is moderate, prolonged exhalation, Breath sounds: wheezing: Vital Signs: 02:12 BP 134 / 80; Pulse 100; Resp 26; Temp 98; Pulse Ox 93% on 2 lpm NC; Weight 98.88 kg; lp1 Height 4 ft. 11 in. (149.86 cm); Pain 0/10; 02:30 BP 126 / 70; Pulse 102; Resp 28; Pulse Ox 95% on 30% BiPAP; lp1 03:00 BP 102 / 50; Pulse 90; Resp 26; Pulse Ox 95% on 30% BiPAP; lp1 03:30 BP 90 / 61; Pulse 98; Resp 29; Pulse Ox 98% on 30% BiPAP; lp1 04:00 BP 106 / 55; Pulse 100; Resp 23; Temp 97.5; Pulse Ox 97% on 30% BiPAP; lp1 04:30 BP 101 / 52; Pulse 95; Resp 23; Pulse Ox 94% on 30% BiPAP; lp1 05:00 BP 113 / 76; Pulse 93; Resp 24; Pulse Ox 94% on 30% BiPAP; lp1 05:57 BP 116 / 79; Pulse 80; Resp 22; Pulse Ox 94% on 30% BiPAP; lp1 02:12 Body Mass Index 44.03 (98.88 kg, 149.86 cm) lp1 MDM: 02:10 Patient medically screened. tw4 05:51 Differential diagnosis: asthma, CHF exacerbation, Chronic Obstructive Pulmonary Disease tw4 Myocardial Infarction pneumonia, Pneumothorax pulmonary edema, Pulmonary Embolism reactive airway disease, Sepsis. Antibiotic administration: Antibiotic administration: Rocephin and Zithromax given. Data reviewed: vital signs, nurses notes. Data interpreted: Pulse oximetry: Interpretation: hypoxia. Plan: O2 by Mask applied. Counseling: I had a detailed discussion with the patient and/or guardian regarding: the historical points, exam findings, and any diagnostic results supporting the discharge/admit diagnosis, lab results, radiology results. Physician consultation: Bull Shepherd MD regarding admission, to the telemetry unit. patient's condition, and will see patient in inpatient room. 05:52 ED course: Pt brought to room 5 placed on bipap for respiratory failure. Pt ABG tw4 revealed good oxygenation on 50% FIO2. Pt received steroid and nebulizers treatments. Will admit to hospital for further management . 02/09 02:12 Order name: Blood Culture Adult (2) tw4 02/09 02:12 Order name: BMP; Complete Time: 04:08 4 02/09 04:08 Interpretation: Normal except: BUN 20; GFR 82. 02/09 02:12 Order name: CBC with Diff; Complete Time: 04:08 02/09 04:08 Interpretation: Normal except: HGB 11.5; HCT 34.3. 02/09 02:12 Order name: Ckmb; Complete Time: 04:08 02/09 04:09 Interpretation: Within normal limits: CKMB 1.6. 02/09 02:12 Order name: CPK; Complete Time: 04:08 02/09 04:09 Interpretation: Within normal limits: CPK 81. 02/09 02:12 Order name: D-Dimer; Complete Time: 04:08 tw4 02/09 04:08 Interpretation: Normal except: D-DIMER 2077. 02/09 02:12 Order name: Hepatic Function; Complete Time: 04:08 [facility] 02/09 04:08 Interpretation: Normal except: ALB 2.7; GLOB 4.1; A/G 0.7. [facility] 02/09 02:12 Order name: Lipase; Complete Time: 04:08 [facility] 02/09 04:09 Interpretation: Normal except: LIP 54. [facility] 02/09 02:12 Order name: Magnesium; Complete Time: 04:08 [facility] 02/09 04:09 Interpretation: Within normal limits: MG 1.9. 02/09 02:12 Order name: NT PRO-BNP; Complete Time: 04:08 [facility] 02/09 04:09 Interpretation: Normal except: NT PRO-BNP 200. 02/09 02:12 Order name: PT-INR; Complete Time: 04:08 [facility] 02/09 04:10 Interpretation: Within normal limits: PT 12.4. 02/09 02:12 Order name: Ptt, Activated; Complete Time: 04:08 [facility] 02/09 04:10 Interpretation: Within normal limits: PTT 26.0. 02/09 02:12 Order name: Troponin (emerg Dept Use Only); Complete Time: 04:08 [facility] 02/09 04:10 Interpretation: Within normal limits: TROPED < 0.02. 02/09 02:22 Order name: Lactate; Complete Time: 04:08 [facility] 02/09 04:11 Interpretation: Within normal limits: LAC 0.8. [facility] 02/09 02:12 Order name: XRAY CXR (1 view) 02/09 02:12 Order name: BIPAP [facility] 02/09 02:22 Order name: Blood Culture Adult (2) [facility] 02/09 02:50 Order name: ABG; Complete Time: 04:08 1 02/09 04:09 Interpretation: Normal except: ABGHCO3 30.8; ABGPO2 118.0; ABGPCO2 49.6; ABGTHB 11.9. 02/09 03:41 Order name: Urine Microscopic Only [facility] 02/09 03:41 Order name: Urine Culture [facility] 02/09 03:44 Order name: Urine Dipstick--Ancillary (enter results); Complete Time: 04:08 mt 02/09 05:39 Order name: CBC with Automated Diff EDMS 02/09 05:39 Order name: Comprehensive Metabolic Panel EDWA 02/09 05:39 Order name: Comprehensive Metabolic Panel EDWA 02/09 05:39 Order name: Troponin I EDWA 02/09 05:39 Order name: Troponin I EDWA 02/09 05:41 Order name: CBC with Automated Diff EDWA 02/09 05:42 Order name: Chest Single View EDWA 02/09 05:42 Order name: Chest Single View EDWA 02/09 02:12 Order name: Call for Old Records; Complete Time: 03:05 tw4 02/09 02:12 Order name: Call RT; Complete Time: 03:05 tw4 02/09 02:12 Order name: Call for Old EKG; Complete Time: 03:05 tw4 02/09 02:12 Order name: EKG; Complete Time: 02:14 tw4 02/09 02:12 Order name: Cardiac monitoring; Complete Time: 02:50 tw4 02/09 02:12 Order name: EKG - Nurse/Tech; Complete Time: 03:06 tw4 02/09 02:12 Order name: IV Saline Lock; Complete Time: 02:50 tw4 02/09 02:12 Order name: Labs collected and sent; Complete Time: 02:50 tw4 02/09 02:12 Order name: O2 Per Protocol; Complete Time: 02:50 tw4 02/09 02:12 Order name: O2 Sat Monitoring; Complete Time: 02:50 tw4 02/09 02:39 Order name: Redd; Complete Time: 03:07 tw4 02/09 03:41 Order name: Urine Dipstick-Ancillary (obtain specimen); Complete Time: 03:43 tw4 02/09 05:39 Order name: CONS Pharmacy Consult EDWA 02/09 05:39 Order name: Heart Healthy EDWA EC:13 Rate is 97 beats/min. Rhythm is regular. QRS [place] is Normal. NH interval is normal. QRS tw4 interval is normal. QT interval is normal. T waves are Normal. T waves are Flattened in leads V3, V4, V5, V6. No ST changes noted. Clinical impression: Abnormal EKG without significant change. Interpreted by me. Reviewed by me. Administered Medications: 02:38 Not Given (Duplicate Order): Rocephin - (cefTRIAXone) 1 grams IVPB once over 30 mins; ak1 (mix in 50 mL NS) 02:50 Drug: Albuterol 2.5 mg Route: Inhalation; lp1 02:51 Drug: Zithromax 500 mg Route: IVPB; Infused Over: 1 hrs; Site: left forearm; lp1 04:00 Follow up: IV Status: Completed infusion; IV Intake: 250ml lp1 02:58 Drug: Lasix 20 mg Route: IVP; Site: left forearm; lp1 04:00 Follow up: Response: No adverse reaction lp1 02:59 Drug: Rocephin 1 grams Route: IV; Rate: calculated rate; Site: left forearm; lp1 03:30 Follow up: IV Status: Completed infusion; IV Intake: 10ml lp1 04:53 Not Given (Given by EMS): SOLU-Medrol 125 mg IVP once lp1 04:59 CANCELLED (Physician Discretion): DuoNeb (3:1) (2.5 mg - 0.5 mg) 3 ml Nebulizer once lp1 Disposition: 05:52 Critical Care:. tw4 Disposition: 02/09/19 04:15 Hospitalization ordered by Bull Shepherd for Inpatient Admission. Preliminary diagnosis are Chronic obstructive pulmonary disease with (acute) exacerbation, Hypoxemia. - Bed requested for Telemetry/MedSurg (Inpatient). - Status is Inpatient Admission. lp1 - Condition is Guarded. - Problem is an ongoing problem. - Symptoms have improved. UTI on Admission? No Critical care time excluding procedures: 05:52 Critical care time: Bedside Care: 25 minutes, Consultation: 5 minutes, Family tw4 Intervention: 5 minutes. Total time: 35 minutes Signatures: Dispatcher [employer] EDMS Erika Travis RN RN lp1 Tracy Simms RN RN ak1 Maddie Wynn RN RN cg Wadley, Terrence, MD MD tw4 Syed De La Rosa mw2 Corrections: (The following items were deleted from the chart) 04:59 04:12 DuoNeb (3:1) (2.5 mg - 0.5 mg) 3 ml Nebulizer once ordered. tw4 lp1 05:13 04:15 Hospitalization Ordered by Bull Shepherd MD for Inpatient Admission. Preliminary tw4 diagnosis is Chronic obstructive pulmonary disease with (acute) exacerbation. Bed requested for Telemetry/MedSurg (Inpatient). Status is Inpatient Admission. Condition is Guarded. Problem is an ongoing problem. Symptoms have improved. UTI on Admission? No. tw4 05:45 05:13 02/09/2019 04:15 Hospitalization Ordered by Bull Shepherd MD for Inpatient cg Admission. Preliminary diagnosis is Chronic obstructive pulmonary disease with (acute) exacerbation; Hypoxemia. Bed requested for Telemetry/MedSurg (Inpatient). Status is Inpatient Admission. Condition is Guarded. Problem is an ongoing problem. Symptoms have improved. UTI on Admission? No. tw4 06:09 05:45 02/09/2019 04:15 Hospitalization Ordered by Bull Shepherd MD for Inpatient lp1 Admission. Preliminary diagnosis is Chronic obstructive pulmonary disease with (acute) exacerbation; Hypoxemia. Bed requested for Telemetry/MedSurg (Inpatient). Status is Inpatient Admission. Condition is Guarded. Problem is an ongoing problem. Symptoms have improved. UTI on Admission? No. cg
--- NOTE | 2019-02-09 04:16 | ER ---
Nurse's Notes [facility] Name: Lucero Valerio Age: 83 yrs Sex: Female : 1935 Arrival Date: 02/09/2019 Time: 02:05 Bed 6 Private MD: Diagnosis: Chronic obstructive pulmonary disease with (acute) exacerbation;Hypoxemia Presentation: 02/09 02:09 Presenting complaint: EMS states: Called for patient in respiratory distress, states lp1 shortness of breath since this morning; Given Duo-neb prior to EMS arrival; Per EMS, patient O2 sat 94% on 4L on arrival, RR 30. Transition of care: patient was received from another setting of care (long-term care facility), [facility]. Onset of symptoms was February 09, 2019. Risk Assessment: Do you want to hurt yourself or someone else? Patient reports no desire to harm self or others. Initial Sepsis Screen: Does the patient meet any 2 criteria? RR > 20 per min. HR > 90 bpm. Does the patient have a suspected source of infection? Yes: Productive cough/pneumonia If YES to both, name of provider notified: Gab Spakrs MD Care prior to arrival: Medication(s) given: Albuterol Neb x 1, Atrovent Neb x 1, Solu-Medrol 125 mg IV IV initiated. 18 GA, in the right forearm, Med neb given. 02:09 Method Of Arrival: EMS: [facility] lp1 02:09 Acuity: MAHAD 3 lp1 Historical: - Allergies: 02:15 Sulfa (Sulfonamide Antibiotics); lp1 - Home Meds: 02:15 melatonin 5 mg Oral tab 2 tab nightly [Active]; GlycoLax 17 gram/dose oral powd once lp1 daily [Active]; Enulose 10 gram/15 mL oral soln 30 mL daily [Active]; omeprazole 20 mg Oral TbEC nightly [Active]; 02:18 ipratropium-albuterol 0.5 mg-3 mg(2.5 mg base)/3 mL Inhl nebu 3 mL every 6 hours lp1 [Active]; Symbicort 160-4.5 mcg/actuation inhalation HFAA 2 puffs 2 times per day [Active]; losartan 50 mg oral tab 1 tab once daily [Active]; aspirin 81 mg Oral TbEC 1 tab once daily [Active]; - PMHx: 02:18 COPD; Polyosteoarthritis; Dysphagia; GERD; Sleep Apnea; Hypertension; lp1 - Immunization history:: Adult Immunizations up to date. - Social history:: Smoking status: Patient/guardian denies using tobacco, the patient reports quitting approximately 15 years ago. - Ebola Screening: : No symptoms or risks identified at this time. Screenin:27 Abuse screen: Denies threats or abuse. Denies injuries from another. Nutritional lp1 screening: No deficits noted. Tuberculosis screening: No symptoms or risk factors identified. Fall Risk Total Cruz Fall Scale indicates High Risk Score (45 or more points). Fall prevention measures have been instituted. Side Rails Up X 2 As available patient and family educated on Fall Prevention Program and Strategies. Assessment: 02:15 General: Appears distressed, Behavior is anxious. Pain: Denies pain. Neuro: Level of lp1 Consciousness is awake, alert, obeys commands, Oriented to person, place, situation. Cardiovascular: Patient's skin is warm and dry. Rhythm is sinus rhythm. Respiratory: Reports shortness of breath Airway is patent Respiratory effort is labored, Breath sounds are diminished bilaterally. Onset: The symptoms/episode began/occurred gradually, the patient has moderate shortness of breath. GI: Abdomen is obese. : No signs and/or symptoms were reported regarding the genitourinary system. EENT: No signs and/or symptoms were reported regarding the EENT system. Derm: Skin is fragile, is thin, Skin is dry, Skin is normal. Musculoskeletal: Contractures noted to bilateral feet. 02:20 Reassessment: BiPAP placed at this time at 30% O2, Patient tolerating well. lp1 03:00 Reassessment: Patient states symptoms have improved. Respiratory: Respiratory effort is lp1 even. Derm: Skin is pink, warm \T\ dry. 03:00 General: Appears in no apparent distress. lp1 04:00 Reassessment: Son-in-law at bedside with patient. lp1 05:00 Reassessment: Patient's daughter at bedside, aware of plan of care of patient;. lp1 General: Appears in no apparent distress. Behavior is calm. Neuro: Level of Consciousness is awake, alert, obeys commands. Cardiovascular: Patient's skin is warm and dry. Respiratory: Respiratory effort is even, BiPAP in place. Derm: Skin is pink, warm \T\ dry. Vital Signs: 02:12 BP 134 / 80; Pulse 100; Resp 26; Temp 98; Pulse Ox 93% on 2 lpm NC; Weight 98.88 kg; lp1 Height 4 ft. 11 in. (149.86 cm); Pain 0/10; 02:30 BP 126 / 70; Pulse 102; Resp 28; Pulse Ox 95% on 30% BiPAP; lp1 03:00 BP 102 / 50; Pulse 90; Resp 26; Pulse Ox 95% on 30% BiPAP; lp1 03:30 BP 90 / 61; Pulse 98; Resp 29; Pulse Ox 98% on 30% BiPAP; lp1 04:00 BP 106 / 55; Pulse 100; Resp 23; Temp 97.5; Pulse Ox 97% on 30% BiPAP; lp1 04:30 BP 101 / 52; Pulse 95; Resp 23; Pulse Ox 94% on 30% BiPAP; lp1 05:00 BP 113 / 76; Pulse 93; Resp 24; Pulse Ox 94% on 30% BiPAP; lp1 05:57 BP 116 / 79; Pulse 80; Resp 22; Pulse Ox 94% on 30% BiPAP; lp1 02:12 Body Mass Index 44.03 (98.88 kg, 149.86 cm) lp1 ED Course: 02:05 Patient arrived in ED. bb 02:09 Erika Travis, RN is Primary Nurse. lp1 02:10 Gab Sparks MD is Attending Physician. tw4 02:12 Triage completed. lp1 02:24 Initial lab(s) drawn, by me, sent to lab. lp1 02:27 Arm band placed on right wrist. lp1 02:27 Patient has correct armband on for positive identification. Placed in gown. Bed in low lp1 position. Call light in reach. Side rails up X2. manager biostatistics on. Pulse ox on. NIBP on. 02:27 X-ray(s) taken. lp1 02:30 Inserted saline lock: 22 gauge in left forearm, using aseptic technique. Blood lp1 collected. 02:30 First set of blood cultures drawn by me. lp1 02:35 XRAY CXR (1 view) In Process Unspecified. EDMS 02:48 Notified ED physician of a critical lab result(s). D-dimer 2077. ak1 03:05 BIPAP Sent. mw2 03:20 Redd cath inserted, using sterile technique, 16 Fr., by sd, balloon inflated, to lp1 gravity drainage, urine specimen collected. 04:15 Bull Shepherd MD is Hospitalizing Provider. tw4 05:00 No provider procedures requiring assistance completed. Patient admitted, IV remains in lp1 place. Administered Medications: 02:38 Not Given (Duplicate Order): Rocephin - (cefTRIAXone) 1 grams IVPB once over 30 mins; ak1 (mix in 50 mL NS) 02:50 Drug: Albuterol 2.5 mg Route: Inhalation; lp1 02:51 Drug: Zithromax 500 mg Route: IVPB; Infused Over: 1 hrs; Site: left forearm; lp1 04:00 Follow up: IV Status: Completed infusion; IV Intake: 250ml lp1 02:58 Drug: Lasix 20 mg Route: IVP; Site: left forearm; lp1 04:00 Follow up: Response: No adverse reaction lp1 02:59 Drug: Rocephin 1 grams Route: IV; Rate: calculated rate; Site: left forearm; lp1 03:30 Follow up: IV Status: Completed infusion; IV Intake: 10ml lp1 04:53 Not Given (Given by EMS): SOLU-Medrol 125 mg IVP once lp1 04:59 CANCELLED (Physician Discretion): DuoNeb (3:1) (2.5 mg - 0.5 mg) 3 ml Nebulizer once lp1 Intake: 03:30 IV: 10ml; Total: 10ml. lp1 04:00 IV: 250ml; Total: 260ml. lp1 Output: 06:05 Urine: 1000ml (Redd); Total: 1000ml. lp1 Outcome: 04:15 Decision to Hospitalize by Provider. tw4 05:01 Condition: stable lp1 05:01 Instructed on the need for admit. 05:57 Admitted to Med/surg accompanied by nurse, family with patient, via stretcher, room lp1 208, with oxygen, with chart, Report called to MALIA Loja 06:09 Patient left the ED. lp1 Signatures: Dispatcher [employer] EDMS Lauren Gil RN RN bb Erika Travis RN RN lp1 Tracy Simms RN RN fer1 Gab Sparks MD MD tw4 Syed De La Rosa mw2 Corrections: (The following items were deleted from the chart) 03:44 02:15 Respiratory: Reports shortness of breath Airway is patent Respiratory effort is lp1 labored, Breath sounds are diminished bilaterally. the patient has moderate shortness of breath lp1 05:01 02:15 Cardiovascular: Patient's skin is warm and dry. lp1 lp1
[2019-02-09 05:00] LABS: Urine Culture Reflex Order NOT NEEDED
[2019-02-09 05:01] LABS: Urine Bacteria >50 /HPF (<20); Urine RBC <5 /HPF (NONE SEEN)
[2019-02-09] MEDS ORDERED: ONDANSETRON 4 MG/2 ML VIAL IV PRN (05:35)
[2019-02-09] MEDS ORDERED: ACETAMINOPHEN 500 MG TAB PO PRN (05:35)
[2019-02-09] MEDS ORDERED: MORPHINE 2 MG/ML SYR IV PRN (05:35)
--- NOTE | 2019-02-09 05:48 | RAD REPORT ---
EXAM DESCRIPTION: [place] Single View02/09/2019 2:36 am CLINICAL HISTORY: Shortness of breath COMPARISON: January 08, 2019 FINDINGS: Mild bilateral interstitial lung opacities appear chronic The lungs appear clear of acute infiltrate. The heart is mildly enlarged. Elevation of the right hemidiaphragm unchanged IMPRESSION: No acute abnormalities displayed
--- NOTE | 2019-02-09 08:25 | P.HP ---
Certification for Inpatient Patient admitted to: Inpatient With expected LOS: >2 Midnights Patient will require the following post-hospital care: Group Home Practitioner: I am a practitioner with admitting privileges, knowledge of patient current condition, hospital course, and medical plan of care. Services: Services provided to patient in accordance with Admission requirements found in Title 42 Section 412.3 of the Code of Federal Regulations Patient History Date of Service: 02/09/19 Reason for admission: Generalized weakness/myopathy/respiratory distress History of Present Illness: Patient is an 83-year-old female came into the hospital with difficulty breathing. She was in the hospital a week prior with generalized weakness. She had seen the local pulmonary physician and she had contractures of her left upper extremity. Patient had been living by herself in [place], [place] prior to moving down to [place] a couple months ago. She moved down here to live with her daughter. She was scheduled to see the local lung doctor to get oxygen. When he noticed her hand becky he sent her to the emergency room. She had an MRI of the brain which was negative. She was arranged to go [place] [facility]. Her shocking decline over the last month and a half is concerning. Prior to this she had been doing all her own activities of daily living. She appears to understand and follow all my commands. It looks as if her muscles just are not able to respond to what she is wanting done. 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 I will Consult Neurology as well as Pulmonary. Her respiratory issues maybe progressing because of her poor negative inspiratory force secondary to a myopathy. If she remains bed bound her long- term recovery is very poor and her prognosis is grim. Hopefully we can help figure out what may be going on. Will order some autoimmune studies as well as endocrine studies. She may need an EMG in the future. She may also need a muscle biopsy. She will be worked up in the hospital at this time. Allergies Sulfa (Sulfonamide Antibiotics) Allergy (Verified 02/09/19 06:37) Anaphylaxis Home Medications: Acetaminophen [Tylenol Extra Strength] 500 mg PO DAILY PRN 01/07/19 Budesonide/Formoterol Fumarate [Symbicort 160-4.5 Mcg Inhaler] 2 puff IH BID 06/23 Losartan Potassium [Cozaar*] 50 mg PO DAILY 01/07/19 Omeprazole 20 mg PO BEDTIME 01/07/19 Ipratropium/Albuterol Sulfate [Iprat-Albut 0.5-3(2.5) mg/3 ml] 3 ml IH Q6HP PRN 02/09/19 Lactulose [Enulose] 30 ml PO DAILY 02/09/19 Mag Hydrox/Aluminum Hyd/Simeth [Hermelinda-Lanta Liquid] 30 ml PO Q4HP PRN 02/09/19 Melatonin 5 mg PO BEDTIME 02/09/19 Polyethyl Gly 3350 [Glycolax*] 17 gm PO DAILY 02/09/19 - Past Medical/Surgical History Has patient received pneumonia vaccine in the past: Yes Diabetic: No -: COPD -: Hypertension -: GERD -: Macular Degeneration -: Gall bladder surgery -: Hysterectomy -: Colon surgery - Family History moher Medical History: Hypertension, Diabetes - Social History Smoking Status: Former smoker Alcohol use: No CD- Drugs: No Caffeine use: Yes Place of [facility]idence: [facility] Review of Systems 10-point ROS is otherwise unremarkable Physical Examination - Vital Signs Temperature: 97.6 F Blood Pressure: 122/57 Pulse: 85 Respirations: 16 Pulse Ox (%): 98 - Physical Exam General: Alert, In no apparent distress, Oriented x3, Other (She follows all my commands although she is physically very weak) HEENT: Atraumatic, PERRLA, Mucous membr. moist/pink, EOMI, Sclerae nonicteric Neck: Supple, 2+ carotid pulse no bruit, No LAD, Without JVD or thyroid abnormality Respiratory: Clear to auscultation bilaterally, Normal air movement Cardiovascular: Regular rate/rhythm, Normal S1 S2, No murmurs Gastrointestinal: Normal bowel sounds, Soft and benign, Non-distended, No tenderness Musculoskeletal: No clubbing, No swelling, No tenderness, Other (Muscular atrophy diffusely) Integumentary: No rashes Neurological: Abnormal gait, Abnormal speech, Abnormal strength, Abnormal tone Lymphatics: No axilla or inguinal lymphadenopathy - Studies Laboratory Data (last 24 hrs) 02/09/19 02:24: PT 12.4, INR 1.05, APTT 26.0 02/09/19 02:24: WBC 6.3, Hgb 11.5 L, Hct 34.3 L, Plt Count 266 02/09/19 02:24: Sodium 142, Potassium 3.6, BUN 20 H, Creatinine 0.68, Glucose 103, Magnesium 1.9, Total Bilirubin 0.4, AST 21, ALT 20, Alkaline Phosphatase 70 , Lipase 54 L Assessment & Plan - Problems (Diagnosis) (1) Generalized weakness Status: Acute (2) Respiratory distress Status: Acute (3) Myopathy Status: Acute (4) Hypercapnia Status: Acute (5) UTI (urinary tract infection) Status: Acute - Plan Plan: 1. Neurology workup 2. MRI of the C-spine and MRI of the brain 3. Pulmonary consultation 4. Autoimmune markers for myopathy 5. DVT prophylaxis, lipid profile, anti-platelet therapy 6. Physical therapy and speech therapy evaluation 7. Continue with anti-platelet therapy and statin therapy 8. Start IV steroids 9. GI prophylaxis Discharge Plan: Home Plan to discharge in: Greater than 2 days - Advance Directives Does patient have a Living Will: Yes Does patient have a Durable POA for Healthcare: Yes - Code Status/Comfort Care Code Status Assessed: Yes Code Status: Full Code Critical Care: No Time Spent Managing PTS Care (In Minutes): 45
[2019-02-09] MEDS ORDERED: FUROSEMIDE 40 MG TABLET PO SCH (09:00)
[2019-02-09] MEDS ORDERED: CEFTRIAXONE/SWI 1gm 1 GM/10 ML SYR IV SCH (09:00)
[2019-02-09] MEDS: FUROSEMIDE 20 MG TABLET PO SCH (09:31)
[2019-02-09] MEDS: PANTOPRAZOLE 40MG TABLET PO SCH (09:31)
[2019-02-09] MEDS: ASPIRIN EC 81 MG TAB PO SCH (09:43)
[2019-02-09 09:53] LABS: Thyroid Stimulating Hormone 0.479 uIU/mL (0.360-3.740)
[2019-02-09] MEDS ORDERED: ALPRAZOLAM 0.5 MG TABLET PO ONE (10:35)
[2019-02-09] MEDS: ARFORMOTEROL TARTRATE 15 MCG/2 ML VIAL.NEB NEB SCH ×3 (11:47→20:10)
--- NOTE | 2019-02-09 11:48 | P.CNS ---
Date of Consult: 02/09/19 Chief Complaint: Generalized weakness/myopathy/respiratory distress History of Present Illness: Patient is 83 years of age admitted with worsening shortness of breath according to the daughter she was ambulating until December 10 and became progressively worse denies unable to walk barely move her arms and legs as been on oxy shortness of breath as also worsened denies any cough sputum or hemoptysis admitted to the hospital she was recently evaluated in the emergency room MRI of the brain was negative and was discharged Allergies Sulfa (Sulfonamide Antibiotics) Allergy (Verified 02/09/19 06:37) Anaphylaxis Home Medications: Acetaminophen [Tylenol Extra Strength] 500 mg PO DAILY PRN 01/07/19 Aspirin [Aspirin EC 81 MG] 81 mg PO DAILY 01/07/19 Budesonide/Formoterol Fumarate [Symbicort 160-4.5 Mcg Inhaler] 2 puff IH BID 06/23 Ibuprofen [Motrin] 200 mg PO DAILY PRN 01/07/19 Losartan Potassium [Cozaar] 50 mg PO DAILY 01/07/19 Omeprazole 20 mg PO BEDTIME 01/07/19 Acetaminophen [Tylenol] 650 mg PO Q6HP PRN 02/09/19 Ipratropium/Albuterol Sulfate [Iprat-Albut 0.5-3(2.5) mg/3 ml] 3 ml IH Q6HP PRN 02/09/19 Lactulose [Enulose] 30 ml PO DAILY 02/09/19 Mag Hydrox/Aluminum Hyd/Simeth [Hermelinda-Lanta Liquid] 30 ml PO Q4HP PRN 02/09/19 Melatonin 5 mg PO BEDTIME 02/09/19 Polyethyl Gly 3350 [Glycolax] 17 gm PO DAILY 02/09/19 - Past Medical/Surgical History Diabetic: No -: COPD -: Hypertension -: GERD -: Macular Degeneration -: Gall bladder surgery -: Hysterectomy -: Colon surgery - Family History moher Medical History: Hypertension, Diabetes - Social History Smoking Status: Former smoker Alcohol use: No CD- Drugs: No Caffeine use: Yes Place of Residence: [facility] Review of Systems is unable to be obtained Physical Examination Temp Pulse Resp BP Pulse Ox 97.6 F 81 16 123/62 98 02/09/19 08:33 02/09/19 09:31 02/09/19 08:33 02/09/19 09:31 02/09/19 08:33 General: Alert, Oriented x3, Cooperative Neck: Supple Respiratory: Clear to auscultation bilaterally, Diminished Cardiovascular: No edema, Normal S1 S2 Gastrointestinal: Normal bowel sounds, Soft and benign Neurological: Other (Patient is barely able to move her arms and legs) Laboratory Data (last 24 hrs) 02/09/19 02:24: PT 12.4, INR 1.05, APTT 26.0 02/09/19 02:24: WBC 6.3, Hgb 11.5 L, Hct 34.3 L, Plt Count 266 02/09/19 02:24: Sodium 142, Potassium 3.6, BUN 20 H, Creatinine 0.68, Glucose 103, Magnesium 1.9, Total Bilirubin 0.4, AST 21, ALT 20, Alkaline Phosphatase 70 , Lipase 54 L - Problems (1) Respiratory failure Current Visit: Yes Status: Acute Plan: Patient is 83 years of age admitted with worsening shortness of breath she has has respiratory failure is hypercapnic with underlying progressive neurovascular disease evaluating neurology console and recent MRI of the brain was negative may have underlying Guillain [place]. Former smoker labs reviewed unremarkable chest x-rays clear he may qualify for noninvasive ventilator I have added some steroids bronchodilators workup still pending Qualifiers: Chronicity: chronic
--- NOTE | 2019-02-09 12:20 | EKG ---
Test Date: 2019-02-09 Test Time: 02:11:52 Soil Surveyor: ADY MEASUREMENT RESULTS: Intervals: Rate: 97 VA: 110 QRSD: 84 QT: 336 QTc: 426 [place]: P: 59 VA: 110 QRS: -1 T: -30 INTERPRETIVE STATEMENTS: Sinus rhythm with short VA Inferior infarct, age undetermined Anterior infarct, age undetermined Abnormal ECG Compared to ECG 01/08/2019 08:42:41 Short VA interval now present Myocardial infarct finding still present Electronically Signed On 02-09-19 12:19:16 MAINTENANCE REPAIRER by Vinnie Puri
--- NOTE | 2019-02-09 14:15 | RAD REPORT ---
EXAM DESCRIPTION: CT - Head C Spine Mpr Wo Con - 02/09/2019 1:40 pm CLINICAL HISTORY: Clonus, tremors COMPARISON: January 07, [address] TECHNIQUE: Computed axial tomography of the head and cervical spine was obtained. Sagittal and coronal reconstruction was performed. All CT scans are performed using dose optimization technique as appropriate and may include automated exposure control or mA/KV adjustment according to patient size. FINDINGS: 14 millimeter low-density area suspected within the left aspect of the taiwo. An intracranial bleed is not seen. The ventricles are normal in caliber. An extra-axial fluid collect ion is not noted. Moderate low-density areas within periventricular, deep and subcortical white matte r likely ischemic changes secondary to small vessel disease Fluid within the visualized sinuses and m astoids is not seen Evaluation of the cervical spine is limited secondary to motion artifact No gross cervical fracture. No dislocation IMPRESSION: 14 millimeter low-density area within the taiwo likely an acute infarction. No gross acute abnormality of the cervical spine Exam discussed with Dr. Navarro
[2019-02-09 15:21] LABS: Arterial Blood Carboxyhemoglob 1.2 % (0-1.5); Blood Gas Oxyhemoglobin 83.3 % (94-97); Blood O2 Saturation 84.7 % (92-98.5)
[2019-02-09] MEDS: METHYLPREDNISOLONE 40 MG INJ IV SCH (17:17)
--- NOTE | 2019-02-09 19:03 | P.PN ---
Date of Service: 02/09/19 Patient seen and examined. She is noted to be short of breath on oxygen by nasal cannula and has been requiring BiPAP. I suspect ventilatory failure from muscle weakness. She also has dysphagia. CT head and cervical spine suggest small acute left pontine infarct. Patient seen by Dr. Navarro. She likely has acute CVA. Patient seen by Dr. Addison and he suspect Mysthenia gravis given rapid decline in her functional status and declining respiratory status. Speech therapy to evaluate. PT and OT when more clinically stable respiratory dimas.
--- NOTE | 2019-02-09 22:16 | CON ---
Reason For Consultation: Consultation called because of diffuse weakness, possible myopathy. History Of Present Illness: Ms. Valerio is an 83-year-old right-handed patient who is admitte d to the hospital with diffuse generalized weakness, progressive loss of speech, and dysphagia. The patient's daughter who is in the room reported inflammation. She was last normal somewhere around [facility] when she was able to plant in a spring garden and actually fell while using a cane to ambulate. She impacted her left face, but did not have bleeding or bruising or any fractures. Since that time , she has a slower progression in terms of inability to maintain balance, gait, coordination, and cecil e mild diffuse weakness. Within a few weeks, she was forced to use a walker to ambulate, which she d id, but had progressive weakness. Around mid December, she actually lost the ability to walk altoge ther and became very stiff in the arms or legs. Had a low tonal speech and progressive dysphagia. I n her intermediate, she had a swallow evaluation done a week and half ago, which she failed most consist encies, but was told that she potentially could use ground meat and pureed food with chin-tuck techni que. She was admitted to [facility] on the that is today with progressive dysphagia, pr ogressive loss of ability to speak with progressive stiffness in all extremities. An attempt was mad e to do a brain MRI, but she kept having difficulty with her breathing and was moving and the study w as not possible. A head CT and cervical spine CT scan, however, was done and it identified a 14 mm a cute pontine infarct, which is involving somewhat the aspect of the left taiwo, more in the right side . The location of the stroke did explain the patient's symptoms. Past Medical History: Includes COPD, hypertension, gastroesophageal reflux disease, and macular dege neration. Surgical History: Gallbladder surgery, hysterectomy, and colon surgery. Allergies: SULFA. Medications: Tylenol Extra Strength 500 mg as needed, aspirin 81 mg daily, Symbicort 2 puffs twice d aily, Motrin 200 mg daily, Cozaar 50 mg daily, omeprazole 20 mg daily, acetaminophen 650 mg as needed , albuterol nebulizer 3 puffs every 6 hours as needed, lactulose 30 mL daily, magnesium hydroxide 30 mL every 4 hours as needed, melatonin 5 mg at bedtime. Family History: Positive for hypertension, diabetes in mother. Social History: She smoked heavily in the past and is now not diagnosed with COPD as indicated. Zuniga s use caffeine. No alcohol and residing in a fdc. Review of Systems: As indicated progressive diffuse weakness in the extremities, dysphagia, dysarthria, loss of balance with preserved cognitive functioning, coughing, and aspiration. Physical Examination: Vital Signs: Blood pressure 132/87, pulse 81 to 97, respiratory rate 16 to 19, temperature 97.9, oxy gen saturation 94% on 3 L oxygen via nasal cannula. Weight 203 pounds, height 4 feet 11-1/2 inches. General: Ms. Valerio is resting in bed. She has a labored breathing with some rhonchi noted. She appe ars to be in mild distress with respiration. However, she is normocephalic, atraumatic. Sclerae ani cteric. Oropharynx is moist and pink. Neck: Supple. Chest: Shows increased upper airway sounds. Abdomen: Soft. Extremities: Show mild edema in the legs more than arms. Neurological: She is alert and oriented to situation, place, and person. She has marked dysarthria with a spastic hypophonic speech. She has full visual prieto with pupils round and reactive. Extrao cular movements are intact. Face is symmetric with good excursions bilaterally. Her tongue is stiff and spastic with difficulty with movement bilaterally. Does appear somewhat midline. Facial sensat ion appears intact bilaterally and shoulder shrug strength has decreased bilaterally around 3/5 to 4/ 5. In the upper extremities, proximally and distally around 3/5 to 4/5 with spasticity, marked hyper ahsan with some mild contractures noted in the fingers on the left being closed and very difficult to open. In her lower extremities, strength bilaterally proximally and distally with marked increased tone proximally and distally. Coordination very difficult to assess due to the spastic we akness. Reflexes are marked hyperreflexic. She actually has continuous jaw clonus. She has continu ous clonic activity on tapping the upper extremities bilaterally with left more than right. She has continuous clonus at the feet when foot is moved backwards, more on the right than the left. Upgoing toes on both sides. Sensory exam is somewhat intact to light touch and temperature in the upper and lower extremities. Gait, unable to stand and ambulate. Laboratory Studies: Complete blood count with differential is essentially unremarkable. Coagulation panel shows D-dimer elevated at 2077. Blood gases show pH of 7.45, pCO2 of 47.9, PO2 of 48.3. Chem istries; sodium, potassium, chloride, and bicarb normal. BUN 20, creatinine 0.68, glucose normal. L actic acid 0.8. Liver function studies normal. Her thyroid-stimulating hormone level normal at 0.47 9, free T4 normal at 1.21, cortisol normal at 14.82. Urinalysis is positive for urinary tract infect ion with positive nitrites, 3+ esterase, greater than 50 white blood cells, greater than 50 bacteria. She does have acetylcholine receptor antibody studies pending. Her chest x-ray shows no acute abno rmalities. However, mild bilateral interstitial lung opacities which was seen appeared to be chronic . Study was compared to one done months previously in January on the . Assessment: Ms. 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 She has hypophonic spastic speech. She will likely have aspiration. This was all discussed with the patient and her daughter and at this stage of her condition is not likely to benefit from an interventional procedure given that this event likely occurred perhaps 4 to 6 week s ago. She has poor chance of recovery from the stroke and will be at high risk of aspiration. The best option is actually hospice at this point. The patient does not want to have intubation, does no t want a tube for feeding, and does not want resuscitative efforts and this was communicated to the ospital staff and the patient's daughter and did appreciate what is next, which is likely a decline o kiki the next couple of weeks. Plan: I recommend that patient be admitted to hospice for hospice care. If the patient does change her mind, she may require a PEG tube and have to consider ventilatory support as she is likely to hav e brainstem edema and progressive dysphagia, dysarthria, and inability to maintain nutritional status orally and to protect her airway. She may be discharged with hospice. AMIRA/ATILIO Voice ID: [id number] Report ID: [id number]
[2019-02-10] MEDS: METHYLPREDNISOLONE 40 MG INJ IV SCH ×3 (00:55→17:03)
[2019-02-10 04:23] VITALS: BMI 39.5
[2019-02-10 05:37] LABS: Absolute Lymphocytes (CBC) 0.5 K/uL (0.7-4.9); Basophils % 0.1 % (0-1.3); Hematocrit 35.1 % (36.0-45.0); MPV 9.1 fL (7.6-11.3); RBC Red Blood Cell Count 4.19 M/uL (3.86-4.86)
[2019-02-10] MEDS: PANTOPRAZOLE 40MG TABLET PO SCH (05:38)
[2019-02-10 06:06] LABS: ALT/SGPT 39 U/L (12-78); AST/SGOT 20 U/L (15-37); Albumin 2.8 g/dL (3.4-5.0); Alkaline Phosphatase 72 U/L (45-117); BUN Blood Urea Nitrogen 25 mg/dL (7-18); Bicarbonate 32 mmol/L (21-32); Bilirubin Total 0.5 mg/dL (0.2-1.0); Glucose Level 122 mg/dL (74-106); Potassium 3.4 mmol/L (3.5-5.1); Protein, Total 7.3 g/dL (6.4-8.2); Sodium Level 141 mmol/L (136-145)
[2019-02-10] MEDS: ARFORMOTEROL TARTRATE 15 MCG/2 ML VIAL.NEB NEB SCH ×2 (06:30→20:00)
[2019-02-10] MEDS ORDERED: SODIUM CHLORIDE 0.9% 10ML INJ IV PRN (06:33)
[2019-02-10] MEDS ORDERED: NA CHLORIDE 0.9% 500 ML ONE (06:37)
[2019-02-10] MEDS: KCL 20 MEQ/100 mL IVPB 20 MEQ/100 ML BAG IV SCH ×2 (06:46→09:00)
--- NOTE | 2019-02-10 07:06 | RAD REPORT ---
EXAM DESCRIPTION: RAD - Chest Single View - 02/10/2019 6:41 am CLINICAL HISTORY: COPD, shortness of breath COMPARISON: February 09 TECHNIQUE: AP portable chest image was obtained 0636 hours . FINDINGS: Lung volumes are low. Mediastinum distorted by rotation. Minimal stranding in each lung ba se likely atelectasis. No new or progressive process from prior day imaging. Heart and vasculature ar e normal. No measurable pleural effusion and no pneumothorax. No acute bony abnormality seen. No acut e aortic findings suspected. IMPRESSION: No acute cardiopulmonary process. No significant change from comparison.
[2019-02-10 07:10] LABS: Blood Morphology Comment NOT SEEN (NOT SEEN); Platelet Estimate ADEQ; Urine White Blood Cell Casts OK
[2019-02-10] MEDS: PANTOPRAZOLE 40 MG INJ IVP SCH (08:55)
[2019-02-10] MEDS: FUROSEMIDE 20 MG TABLET PO SCH (09:00)
[2019-02-10] MEDS: ASPIRIN EC 81 MG TAB PO SCH (09:00)
--- NOTE | 2019-02-10 15:08 | P.PN ---
Subjective Date of Service: 02/10/19 Chief Complaint: Generalized weakness/myopathy/respiratory distress Patient appears to be declining respiratory dimas. Noted to have labored breathing on oxygen by nasal cannula. She is also significantly aphasic. She has been afebrile. Physical Examination - Vital Signs Temperature: 98.5 F Blood Pressure: 177/80 Pulse: 94 Respirations: 20 Pulse Ox (%): 94 - Physical Exam General: Oriented x3, Moderate distress HEENT: Mucous membr. moist/pink Neck: Supple, JVD not distended Respiratory: Diminished, Expiratory wheezes (Bilateral upper airway transmitted sounds) Cardiovascular: No edema, Regular rate/rhythm, No murmurs Capillary refill: <2 Seconds Gastrointestinal: Normal bowel sounds, Soft and benign, Non-distended, No tenderness Musculoskeletal: No swelling, No erythema Integumentary: No rashes Neurological: Other (Right-sided weakness) Assessment And Plan - Current Problems (Diagnosis) (1) Acute CVA (cerebrovascular accident) Current Visit: Yes Status: Acute (2) Generalized weakness Current Visit: Yes Status: Acute (3) Hypercapnia Current Visit: Yes Status: Acute (4) Respiratory distress Current Visit: Yes Status: Acute (5) Respiratory failure Current Visit: Yes Status: Acute Qualifiers: Chronicity: acute on chronic Respiratory failure complication: hypoxia and hypercapnia Qualified Code(s): J96.21 - Acute and chronic respiratory failure with hypoxia; J96.22 - Acute and chronic respiratory failure with hypercapnia (6) UTI (urinary tract infection) Current Visit: Yes Status: Acute - Plan Patient seen and evaluated by neurology and pulmonology. CT head report acute left pontine CVA which likely explain patient's symptoms. Prognosis is poor given ventilatory respiratory failure and dysphagia. High risk for aspiration Patient has declined PEG tube feeding. She has opted for DNR She completed [id number] DNR today Upon further discussion patient and daughter are opting for hospice at home. Continue current bronchodilator treatments and steroid. Intermittent BiPAP for respiratory support Dysphagia diet as tolerated. Continue oral Lasix. - Code Status/Comfort Care Code Status: Do Not Attempt Resuscitat
[2019-02-10] MEDS ORDERED: KCL 20 MEQ/100 mL IVPB 20 MEQ/100 ML BAG IV SCH (17:00)
[2019-02-10] MEDS: D5 0.9 NS 1,000 ML IV SCH (23:30)
[2019-02-11] MEDS: METHYLPREDNISOLONE 40 MG INJ IV SCH ×2 (01:16→08:25)
[2019-02-11] MEDS: D5 0.9 NS 1,000 ML IV SCH (08:20)
[2019-02-11] MEDS: FUROSEMIDE 20 MG TABLET PO SCH (08:23)
[2019-02-11] MEDS: ASPIRIN EC 81 MG TAB PO SCH (08:23)
[2019-02-11] MEDS: PANTOPRAZOLE 40 MG INJ IVP SCH (08:24)
[2019-02-11] MEDS: ARFORMOTEROL TARTRATE 15 MCG/2 ML VIAL.NEB NEB SCH ×2 (10:15→20:00)
--- NOTE | 2019-02-11 11:40 | P.PN ---
Subjective Date of Service: 02/11/19 Chief Complaint: Generalized weakness/myopathy/respiratory distress Patient's condition is stable denies any respiratory distress diagnosed with a progressive pontine stroke debilitating symptoms seen by neurology patient states she was eating prior to coming to the hospital Review of Systems General: Weakness Respiratory: Shortness of Breath Physical Examination - Vital Signs Temperature: 97.9 F Blood Pressure: 176/83 Pulse: 75 Respirations: 20 Pulse Ox (%): 93 - Physical Exam General: Alert, Cooperative Neck: Supple Respiratory: Clear to auscultation bilaterally Cardiovascular: No edema, Regular rate/rhythm - Studies Microbiology Data (last 24 hrs): 02/09/19 03:40 Catheterized Urine [place] Count - Final >100,000 CFU/ML. 02/09/19 03:40 Catheterized Urine - Final Klebsiella Pneumoniae Assessment & Plan - Problems (Diagnosis) (1) Respiratory failure Current Visit: Yes Status: Acute Plan: Patient has respiratory failure chronic progressive paraplegia and expressive dysphagia from her pontine stroke she is also hypoxic hypercarbic agree with hospice care may need to address nutrition prior to discharge continue with long -acting bronchodilators at home may benefit from home BiPAP diagnosis chronic respiratory failure from stroke and underlying chronic COPD Qualifiers: Chronicity: acute on chronic Respiratory failure complication: hypoxia and hypercapnia Qualified Code(s): J96.21 - Acute and chronic respiratory failure with hypoxia; J96.22 - Acute and chronic respiratory failure with hypercapnia
--- NOTE | 2019-02-11 17:41 | P.DS ---
Admission Date: 02/09/19 Discharge Date: 02/11/19 Disposition: HOSPICE-HOME Discharge Condition: SERIOUS Reason for Admission: Generalized weakness/myopathy/respiratory distress - Problems (1) Acute CVA (cerebrovascular accident) Current Visit: Yes Status: Acute (2) Generalized weakness Current Visit: Yes Status: Acute (3) Hypercapnia Current Visit: Yes Status: Acute (4) Respiratory distress Current Visit: Yes Status: Acute (5) Respiratory failure Current Visit: Yes Status: Acute Qualifiers: Chronicity: acute on chronic Respiratory failure complication: hypoxia and hypercapnia Qualified Code(s): J96.21 - Acute and chronic respiratory failure with hypoxia; J96.22 - Acute and chronic respiratory failure with hypercapnia (6) UTI (urinary tract infection) Current Visit: Yes Status: Acute Brief History of Present Illness: 83-year-old woman presented to the emergency department from detention with a complaint of shortness of breath. Patient was in the emergency department a week earlier with generalized weakness. She also lost her ability to control her legs about 2 months ago. Prior workup for CVA according to the patient was negative. She has not set up rapidly decline in functional status over the past few months. Patient was requiring 4-5 L of oxygen to maintain oxygen saturation. Chest x- ray in the ED demonstrated no acute disease. Patient was admitted for further management of acute respiratory failure. Hospital Course: Patient admitted to the medical floor. She was seen by pulmonology and Neurology. MRI of the brain was ordered but patient could not tolerate it due to her shortness of breath. CT scan of the head done reported acute left pontine. Patient failed swallow evaluation and was diagnosis severe dysphagia. She was tolerating the ground meat and pureed diet prior to presenting to the ED. She required BiPAP intermittently due to labored breathing. The patient is suspected to have ventilatory failure from acute CVA. She was treated with bronchodilators, Lasix and steroids. Her neurologic status has progressed rapidly, now a severe dysphagia, difficulty clearing pharyngeal secretions, labored breathing, left-sided weakness. PEG tube for feeding was recommended. Patient declined PEG tube placement. She also requested for DNI and DNR and he eventually opted for hospice placement. She has been accepted to home with hospice. She will need BiPAP intermittently for labored breathing. She would also like to try a pleasure feeding. Of note her urine culture grew pansensitive Klebsiella pneumonia. She received a dose of IV Rocephin for UTI. Vital Signs/Physical Exam: Temp Pulse Resp BP Pulse Ox 98.2 F 74 20 137/77 95 02/11/19 12:00 02/11/19 12:00 02/11/19 12:00 02/11/19 12:00 02/11/19 12:00 General: Other (Awake) HEENT: Normocephalic, Mucous membr. moist/pink Neck: Supple, JVD not distended Respiratory: Expiratory wheezes, Other (Labored breathing.) Cardiovascular: No edema, Normal pulses Gastrointestinal: Normal bowel sounds, Soft and benign, No tenderness Musculoskeletal: No swelling Integumentary: No rashes Neurological: Other (Left-sided weakness) Laboratory Data at Discharge: WBC 6.3 K/uL (4.3-10.9) 02/10/19 05:12 Hgb 11.9 g/dL (12.0-15.0) L 02/10/19 05:12 Hct 35.1 % (36.0-45.0) L 02/10/19 05:12 Plt Count 280 K/uL (152-406) 02/10/19 05:12 PT 12.4 SECONDS (9.5-12.5) 02/09/19 02:24 INR 1.05 02/09/19 02:24 APTT 26.0 SECONDS (24.3-36.9) 02/09/19 02:24 Sodium 144 mmol/L (136-145) 02/11/19 05:19 Potassium 4.0 mmol/L (3.5-5.1) 02/11/19 05:19 BUN 33 mg/dL (7-18) H 02/11/19 05:19 Creatinine 0.70 mg/dL (0.55-1.3) 02/11/19 05:19 Glucose 137 mg/dL (74-106) H 02/11/19 05:19 Magnesium 1.9 mg/dL (1.8-2.4) 02/09/19 02:24 Total Bilirubin 0.5 mg/dL (0.2-1.0) 02/10/19 05:12 AST 20 U/L (15-37) 02/10/19 05:12 ALT 39 U/L (12-78) 02/10/19 05:12 Alkaline Phosphatase 72 U/L (45-117) 02/10/19 05:12 Troponin I < 0.02 ng/mL (0.0-0.045) 02/09/19 10:55 Lipase 54 U/L (73-393) L 02/09/19 02:24 Home Medications: Acetaminophen [Tylenol Extra Strength] 500 mg PO DAILY PRN 01/07/19 Budesonide/Formoterol Fumarate [Symbicort 160-4.5 Mcg Inhaler] 2 puff IH BID 06/23 Losartan Potassium [Cozaar*] 50 mg PO DAILY 01/07/19 Omeprazole 20 mg PO BEDTIME 01/07/19 Ipratropium/Albuterol Sulfate [Iprat-Albut 0.5-3(2.5) mg/3 ml] 3 ml IH Q6HP PRN 02/09/19 Lactulose [Enulose] 30 ml PO DAILY 02/09/19 Mag Hydrox/Aluminum Hyd/Simeth [Hermelinda-Lanta Liquid] 30 ml PO Q4HP PRN 02/09/19 Melatonin 5 mg PO BEDTIME 02/09/19 Polyethyl Gly 3350 [Glycolax*] 17 gm PO DAILY 02/09/19 Diet: Regular diet for pleasure feeding Activity: Activity as tolerated. Time spent managing pt's care (in minutes): 48
[2019-02-11 21:00] VITALS: O2SAT 98
[2019-02-13 07:00] VITALS: BP 122/57; TEMP 97.6
== END 2019-02-11 21:00 | disposition hospice, home (50) | DRG 64 ==
LOC: ER 02:00 → ERHOLD 05:41 → 2ND 05:58
PROVIDERS: ADMIT Internal Medicine; ATTEND Hospitalist
PROC: 5A09357 Assistance with Respiratory Ventilation, Less than 24 Consecutive Hours, Continuous Positive Airway Pressure (ICD-10-PCS; principal; 2019-02-09)
DX: I63.9 Cerebral infarction, unspecified (principal); J96.22 Acute and chronic respiratory failure with hypercapnia; N39.0 Urinary tract infection, site not specified; R13.10 Dysphagia, unspecified; R47.9 Unspecified speech disturbances; R53.1 Weakness; J44.9 Chronic obstructive pulmonary disease, unspecified; I10 Essential (primary) hypertension; K21.9 Gastro-esophageal reflux disease without esophagitis; Z88.2 Allergy status to sulfonamides; H35.30 Unspecified macular degeneration; Z87.891 Personal history of nicotine dependence; B96.1 Klebsiella pneumoniae [K. pneumoniae] as the cause of diseases classified elsewhere
CPT/HCPCS: 36415; 51702; 70450; 71045; 72125; 80048; 80053; 80076; 81003; 81015; 82085; 82533; 82550; 82553; 82805; 83605; 83690; 83735; 83880; 84238; 84439; 84443; 84484; 85025; 85379; 85610; 85730; 87040; 87077; 87086; 87088; 87186; 92610; 93005; 94640; 94660; 94760; 96365; 96368; 96375; 99285; C9113; J0456; J0696; J1940; J2920; J7030; J7040; J7042; J7605